=== PATIENT | female | born 1995 | race Hispanic/Latino ===

== ENCOUNTER 2019-12-05 17:30 | Emergency (ER) | payer BC, OTHER, SELFPAY ==
[2019-12-06 19:05] LABS: SARS-CoV-2 MS2 Positive; SARS-CoV-2 N Gene Negative; SARS-CoV-2 S Gene Negative; SARS-CoV-2 by NAA Not Detected (NotDetected); SARS-CoV-2 orf1ab Negative
== END 2019-12-05 18:30 | disposition home or self-care (01) ==
LOC: NAV ERS 17:30
DX: R09.81 Nasal congestion (principal); R43.9 Unspecified disturbances of smell and taste; Z20.828 Contact with and (suspected) exposure to other viral communicable diseases
CPT/HCPCS: 87635; 99283; U0003

== ENCOUNTER 2022-04-02 13:52 | Emergency (ER) | payer BC, SELFPAY ==
[2022-04-02] MEDS ORDERED: Acetaminophen 500 MG TAB ONE (14:30)
[2022-04-02] MEDS ORDERED: Sodium Chloride 0.9% 2,000 ML ONE (14:30)
[2022-04-02 14:47] LABS: Bilirubin Negative (Negative); Blood, Urine Trace (Negative); Glucose, Urine (Dipstick) Negative (Negative); Ketone, Urine Trace mg/dL (Negative); Leukocyte Trace (Negative); Nitrite Negative (Negative); Protein, Urine (Dipstick) Negative (Neg-Trace); Specific Gravity, Urine 1.015 (1.005-1.030); pH, Urine 8.5 (5.0-9.0)
[2022-04-02 14:50] LABS: Pregnancy Test - Urine (BHCG) Negative (Negative); Pregu Control Background? CLEAR/WHITE (CLR/WHITE); Pregu Control Bar Appear? YES (CONTROL BAR); Specific Gravity 1.015 (1.002-1.036)
[2022-04-02 14:51] LABS: Clarity SL HAZY (Clear)
[2022-04-02 14:55] LABS: INR-International Normal Ratio 1.1; PTT 28.8 sec (22.9-36.1)
[2022-04-02 14:57] LABS: Bacteria/HPF 2+ HPF (None Seen); RBC/HPF 0-3 HPF (0-3); WBC/HPF 0-3 HPF (0-3)
[2022-04-02 14:58] LABS: Lactic Acid 1.1 mmol/L (0.5-2.2)
[2022-04-02 15:02] LABS: Band 7 % (5-11); Hemoglobin 13.4 g/dL (12.0-16.0); Lymphocytes 12 % (21-51); MDiff Complete? YES; Mean Corpuscular HGB CONC 31.9 g/dL (32.0-36.0); Mean Corpuscular Hemoglobin 28.1 pg (27.0-31.0); Mean Corpuscular Volume 88.1 fl (78.0-98.0); Mean Platelet Volume 6.9 fL (7.4-10.4); Monocytes 8 % (0-10); Neutrophil 72 % (42-75); Platelet Count 429 10x3/uL (130-400); Platelet Morphology Comment Appears Adequate; RBC Distribution Width 13.2 % (11.5-14.5); Reactive Lymphocytes 1 % (0-10); Red Blood Cell (RBC) Count 4.78 mill/uL (4.20-5.40); Toxic Granulation SLIGHT; White Blood Cell (WBC) Count 15.9 10x3/uL (4.8-10.8)
[2022-04-02 15:03] LABS: ALT (SGPT) 56 U/L (8-55); AST (SGOT) 30 U/L (5-34); Albumin 4.1 g/dL (3.5-5.0); Alkaline Phosphatase 82 U/L (40-110); Anion Gap 16 mmol/L (10-20); BUN (Urea Nitrogen) 7 mg/dL (7.0-18.7); Bilirubin, Total 0.6 mg/dL (0.2-1.2); Calc. Creatinine Clearance 0 mL/min (70-130); Calcium 8.9 mg/dL (7.8-10.44); Carbon Dioxide 21 mmol/L (22-29); Chloride 100 mmol/L (98-107); Estimated GFR 103; Globulin 4.3 g/dL (2.4-3.5); Glucose 88 mg/dL (70-105); Lipase 20 U/L (8-78); Potassium 4.2 mmol/L (3.5-5.1); Protein, Total 8.4 g/dL (6.0-8.3); Sodium 133 mmol/L (136-145)
[2022-04-02 15:27] LABS: SARS-CoV-2 NAA Rapid Test Not Detected (NotDetected)
[2022-04-02] MEDS ORDERED: Lidocaine 1% (PF) 30 ML VIAL ONE (15:50)
[2022-04-02] MEDS ORDERED: Sodium Chloride 0.9% 100 ML ONE (15:51)
[2022-04-02] MEDS ORDERED: cefTRIAXone\\ROCEPHIN 2 GM VIAL ONE (15:51)
[2022-04-02] MEDS ORDERED: Sodium Chloride 0.9% 250 ML 250 ML ONE (16:59)
[2022-04-02] MEDS ORDERED: Vancomycin 1 GM VIAL ONE (16:59)
[2022-04-02] MEDS ORDERED: Sodium Chloride 0.9% 1,000 ML ONE (17:38)
== END 2022-04-02 18:08 | disposition short-term general hospital (02) ==
LOC: NAV ERS 13:52
DX: A41.9 Sepsis, unspecified organism (principal); R51.9 Headache, unspecified
CPT/HCPCS: 70450; 71045; 80053; 81003; 81015; 81025; 83605; 83690; 85025; 85610; 85730; 87040; 87081; 87430; 87804; 96365; 96367; J0696; J2001; J3370; J3490; J7050; U0002